=== PATIENT | male | born 1945 | race Caucasian/White ===

== ENCOUNTER 2017-01-28 14:26 | Inpatient (IN) | payer MEDICARE ==
[~2017-01-28] VITALS: Ht 165.1 cm; Wt 83.0 kg
--- NOTE | ~2017-01-28 | OR ---
ADMIT: 01/28/2017 RM/LOC: 529 [facility] MR#: [id number] [address] [facility] [address] [place] [id number] MO[place] [place] [id number] Operative/Delivery Room Report SEX: M AGE: 71 : 1945 SURGERY DATE: 01/28/2017 SURGEON: Vinay Brown MD [employer]ILDR[employer] SERVICE WORKER: MISAEL Santos PREPROCEDURE DIAGNOSIS: Acute appendicitis. POSTPROCEDURE DIAGNOSIS: Perforated cecal mass versus appendix. PROCEDURE: Laparoscopic right hemicolectomy. INDICATIONS: The patient is a 71-year-old, who presented with 3-day history of abdominal pain, radiographic evidence of appendicitis, who presents for laparoscopic appendectomy. FINDINGS: The patient was taken the operating room. General endotracheal anesthesia was induced. The patient's abdomen was prepped and draped in normal sterile fashion. The case was begun by making a transverse, supraumbilical 5 mm skin incision using #11 blade. A retractable 5 mm port was placed within the abdomen. The abdomen was insufflated with CO2 to an intra-abdominal pressure of 15 mmHg. A camera was placed showing no bowel or vascular injury. Suprapubic 5 mm port in the left lower quadrant 12 mm port was placed under direct vision. The case was begun by noting the cecum that was inflamed and stuck to the undersurface of the anterior abdominal wall. When we peeled this down with atraumatic clamps and a suction instrument, immediately there was stool and evidence of what we thought was a perforated appendix. We were able to irrigate and remove the feculent material. We spent the next 0.5 hour or so trying to mobilize the distal ilium and cecum from the retroperitoneum and could not clearly identify an appendix. This perforation appeared right at the base of the appendix or even the cecum. There was a lot of firmness within the cecum itself. I made an attempt to divide the appendiceal mesentery after creating a window between the mesentery with atraumatic clamps and suction instrument and divided with one firing of the appendiceal mesentery with Endo-JUVENTINO 45, 2.5 mm stapler. As I continued this dissection, I tried to make a window behind the cecum just off the distal ileocecal junction, but when palpating this area of large firmness and perforation, there was really no way to get a margin to do a possible partial cecectomy without stapling across the ileocecal valve; therefore, I mobilized the whole right colon along the white line of Toldt using Harmonic scalpel. I did place epigastric 5 mm port. Joo Caldwell was brought in the room for assistance. I then identified the omentum and obtained access to the lesser sac near the mid transverse colon using Harmonic scalpel, continued dissection dividing the whole hepatic flexure, retroperitoneal attachments, lifted up the cecum cephalad using Harmonic scalpel, divided the base of the ileocolic vascular takeoff and using an Endo-JUVENTINO 45, 2.5 mm staple divided this takeoff. I was able to then clearly identify the duodenal, able to tease this posteriorly. I then had the whole ileocecal region fully mobilized and made a midline incision with a #10 blade connecting our two 5 mm port sites, placed a ADMIT: 01/28/2017 RM/LOC: 529 [facility] MR#: [id number] [address] [id number] MARIFER MOORE [address] [place] [address] Operative/Delivery Room Report SEX: M AGE: 71 : 1945 wound protector within the abdomen, brought the specimen out through our midline incision. We were able to palpate the cecum at this point, and still very concerned that there is possible cecal mass. Again, completely unable to identify what could be appendix and again reaffirmed the fact that there was really no way to just do a partial cecectomy to have any type of adequate cecal tissue for staple line without completely dividing the ileocecal junction. Therefore, we divided the remainder of the colon mesentery and small bowel mesentery between clamps and 0 Vicryl ties made enterotomies in the small bowel and the colon using Metzenbaum scissors created a [id number] ileocolic stapled anastomosis with a 75 JUVENTINO stapler, examined the mucosal part of the staple line showing no bleeding and then closed the common enterotomy opening with 2 firings of a 75 JUVENTINO stapler. We then changed gloves and then I reinforced the apex of the staple line using interrupted 4 interrupted 3-0 silk seromuscular sutures and then reinforced the common enterotomy staple line with a running 3-0 silk seromuscular suture imbricating the staple line. There was a palpable and visible blood supply to this anastomosis. We placed this bowel back into the intra-abdominal space. We closed the fascia with running single stranded #1 PDS suture, re-insufflated the intra-abdominal space showing no complicating features. We saw the anastomosis resting comfortably in the right upper quadrant. I did irrigate the right upper quadrant, irrigated and suctioned out. I did not see any complicating features. I examined the midline closure, which appeared intact and then closed the left lower quadrant 12 mm fascial port site with interrupted figure- of-eight 0 Polysorb suture passer. The air was desufflated. The port sites removed. The skin sites were closed with interrupted skin jose r. The wound was cleaned, dried, and dressed. The patient tolerated the procedure without difficulty, was wheeled to recovery room in good condition. Vinay Brown MD/ joanna JOB #: [id number] CC: Vinay Brown, Attending Physician Vinay Brown, Family Physician
--- NOTE | 2017-01-29 13:52 | HP ---
ADMIT: 01/28/2017 RM/LOC: 529 [facility] MR#: [id number] [facility]#: [id number] [address] [facility] [address] [place] [phone] DANNY MOORE [address] [place] [address] History and Physical SEX: M AGE: 71 : 1945 DATE OF SERVICE: 01/28/2017 CHIEF COMPLAINT: Abdominal pain. HISTORY OF PRESENT ILLNESS: Danny is a very pleasant 71-year-old male, who developed sudden onset of right lower quadrant abdominal pain approximately 2 to 3 days ago. He was outside doing yard work, where at first he believed he strained something but his pain did not improve. Because of his symptoms, he decided to seek medical attention at the [facility] which they worked him up and showed that he had acute appendicitis. He is now residing in our Emergency Department. The patient's abdominal pain in his right lower quadrant is sharp in nature. He denies any nausea, vomiting, diarrhea, constipation, dark or bloody stools, fever, chills, or night sweats. He did state that he had a prior episode of this before as a child but they only treated with some oral medications and the patient was discharged from the hospital at that time. PAST MEDICAL HISTORY: Significant for osteoporosis, hyperlipidemia, and hypertension. PAST SURGICAL HISTORY: Open bilateral inguinal hernia repairs and surgery for a right broken arm. ALLERGIES: NO KNOWN DRUG ALLERGIES. MEDICATIONS: 1. Lipitor. 2. Aspirin. 3. Fish oil. 4. Calcitriol. 5. Fosamax. FAMILY HISTORY: Noncontributory. SOCIAL HISTORY: The patient has approximately three beers a week and is a former smoker, but quit back in the . He denies any illicit drug use. REVIEW OF SYSTEMS: CONSTITUTIONAL: The patient denies any fever, chills, or night sweats. The rest of comprehensive 10-point review of systems was performed and all other systems are negative. PHYSICAL EXAMINATION: GENERAL: The patient is in no acute distress. He is alert and oriented. HEENT: Head is normocephalic and atraumatic. EOMS are intact. Conjunctivae free of icterus, erythema, or pallor. Pinnae, free of deformities. Nose, midline. No tracheal deviation. NECK: Supple. SKIN: Negative for jaundice, clubbing, edema, pallor, or cyanosis. LUNGS: Clear to auscultation bilaterally. Normal respiratory effort. ADMIT: 01/28/2017 RM/LOC: 529 [facility] MR#: [id number] [address] [address] DANNY MOORE [address] [place] [address] History and Physical SEX: M AGE: 71 : 1945 HEART: Distal pulses intact. Regular rate and rhythm. ABDOMEN: Soft and nondistended. Tender in right lower quadrant. Exquisite tenderness. Negative for rebound tenderness. Negative for Rovsing sign. Negative for obturator sign. Negative psoas sign. NEURO: Grossly intact. LABORATORY DATA: The following was obtained from an outside lab. White blood cell count elevated at 11.6. DIAGNOSTIC IMAGING: CT of abdomen revealed acute appendicitis. Cannot exclude mass in cecum, also shows granulomatous disease suspect bilateral parapelvic renal cysts and degenerative disk disease at T8-T9 and L1-L2. ASSESSMENT: Acute appendicitis. PLAN: The plan is to have the patient undergo laparoscopic possible open appendectomy performed by Dr. Brown in a couple hours. I discussed the risks, alternatives, benefits, and complications of surgery with the patient to which he is in agreement of this plan, had all of his questions answered and would like to proceed. I will get him on surgery schedule and will be going to surgery shortly. MISAEL Santos / Vinay Brown MD / joanna JOB #: [id number] CC: Vinay Brown, Attending Physician Vinay Brown, Family Physician
[2017-02-02] MEDS ORDERED: ASPIR 8181 MG PO (22:05)
[2017-02-02] MEDS ORDERED: VITAMIN D-32000 UNI1 PO (22:05)
[2017-02-02] MEDS ORDERED: ALENDRONATE SOD70 MG PO (22:05)
[2017-02-02] MEDS ORDERED: MOTRIN IB200 MG PO (22:06)
[2017-02-02] MEDS ORDERED: THERA1 EACH PO (22:06)
[2017-02-02] MEDS ORDERED: PATANOL 0.1%5 ML OU (22:06)
[2017-02-02] MEDS ORDERED: CLARITIN DPS10 MG PO (22:06)
[2017-02-02] MEDS ORDERED: OMEGA-3 DPS1000 MG PO (22:07)
[2017-02-02] MEDS ORDERED: NORCO 5-325 TA1 EACH PO (22:07)
[2017-02-02] MEDS ORDERED: AUGMENTIN 875-1 EACH PO (22:07)
--- NOTE | 2017-02-16 08:14 | ER ---
ADMIT: 01/28/2017 RM/LOC: 529 [facility] MR#: [id number] [address] [facility] [address] [place] [phone] MARIFER MOORE [address] [place] [address] Emergency Room Report SEX: M AGE: 71 : 1945 DATE: 01/28/2017 ADDENDUM: A 71-year-old white male, coming in with right lower quadrant pain, [facility]. He does have an appendectomy. White count 11.6. [facility] just shortly ago and he will be allowed to stay here. I spoke with Dr. Brown. He will admit. CONDITION ON DISCHARGE: Serious, but stable. Joo Frederick MD/ joanna JOB #: [id number] CC: Vinay Brown MD, Attending Physician Vinay Brown MD, Family Physician
--- NOTE | 2017-03-04 08:51 | DS ---
ADMIT: 01/28/2017 RM/LOC: 9 [facility] MR#: [id number] [facility] [id number] MARIFER MOORE [address] [place] [address] Discharge Summary SEX: M AGE: 71 : 1945 ADMISSION DATE: 01/28/2017 DISCHARGE DATE: 02/01/2017 DISMISSAL DIAGNOSIS: Acute appendicitis. DISMISSAL DIAGNOSES: 1. Acute appendicitis with perforation abscess formation. 2. Cecal mucosal necrosis with abscess formation. 3. Acute and chronic serositis. 4. Osteoporosis. 5. Hyperlipidemia. 6. Hypertension. 7. Previous open bilateral inguinal hernia repairs. 8. Previous surgery for broken arm. PROCEDURES: Laparoscopic right hemicolectomy. HOSPITAL COURSE: The patient came to the ER with signs and symptoms concerning for acute appendicitis. Therefore, he immediately transferred to the short-stay surgery services and underwent surgery. Afterwards, the patient transferred to the floor without any complications. He was an inpatient admit with routine med/surg orders. He was started on clears and was given a morphine [employer] for pain control. Overall, the patient recovered well while in the hospital. He tolerated an advanced diet and had normal return of his bowel function. He was up ambulating and vitals remained stable throughout his hospital course. He was weaned off his morphine [employer] and was tolerating oral pain medications. He also transitioned well to oral antibiotics. Lab work remained normal and the patient was able to discharge to home on 02/01/2017. DISCHARGE INSTRUCTIONS: 1. General diet. 2. Activity as tolerated. 3. Follow up with Dr. Brown, Saturday, 02/11. ADMIT: 01/28/2017 RM/LOC: 9 [facility] MR#: [id number] [address] [place], [place] [id number] OSCAR MARIFER Rosalinda [address] [place] [address] Discharge Summary SEX: M AGE: 71 : 1945 DISCHARGE MEDICATIONS: 1. Aspirin 81 mg in the evening. 2. Alendronate 70 mg weekly on Saturday. 3. Vitamin D3 2000 units daily. 4. Multivitamin daily. 5. Loratadine 10 mg daily p.r.n. 6. Ibuprofen 200 mg daily p.r.n. 7. Olopatadine 0.1% one drop in eyes b.i.d. p.r.n. 8. Fish oil 1200 mg daily p.r.n. 9. Augmentin 875 mg b.i.d. 10.[place] 5/325, one tab q.4h p.r.n. MISAEL Santos / Vinay Brown MD / vdg JOB #: [id number] CC: Vinay Brown MD, Attending Physician Vinay Brown MD, Family Physician
--- NOTE | 2017-03-04 08:51 | HP ---
ADMIT: 01/28/2017 RM/LOC: [facility] MR#: [id number] 2620 [facility] [address] [place] [phone] MARIFRE MOORE [address] [place] [address] Pre-OP History and Physical SEX: M AGE: 71 : 1945 DATE OF SERVICE: 01/28/2017 HISTORY OF PRESENT ILLNESS: The patient is a 71-year-old, who presents with about 72-hour history of abdominal pain that is localized to right lower quadrant. Denies nausea, vomiting, or diarrhea. Denies previous history of that issue. Had workup today over at the OR showing acute appendicitis, was sent for definitive cares. PAST SURGICAL HISTORY: Includes open bilateral inguinal hernia repairs in the past. PAST MEDICAL HISTORY: I think hypercholesterolemia and osteoporosis, maybe osteopenia. MEDICATIONS: I believe he mentioned he takes a cholesterol pill and alendronate, although I do not see the cholesterol pill listed. ALLERGIES: HE HAS NO ALLERGIES. SOCIAL HISTORY: Nondrinker. Nonsmoker. REVIEW OF SYSTEMS: No weight changes. No skin rash or hives. No headaches. No cough or shortness of breath. No extremity complaints. He has had the right lower quadrant abdominal pain. No hematologic, neurologic, or psychiatric issues. PHYSICAL EXAMINATION: VITAL SIGNS: He is afebrile. Vitals stable. HEART: Regular. LUNGS: Clear. ABDOMEN: Soft, nondistended. Tender to palpation in right lower quadrant. EXTREMITIES: No peripheral edema. NEURO: No focal neurologic deficits. ASSESSMENT AND PLAN: The patient is a 71-year-old with signs, symptoms, and radiographic evidence consistent with appendicitis. Plan is for laparoscopic versus open appendectomy. Vinay Brown MD/ joanna JOB #: [id number] CC: Vinay Brown, Attending Physician . Rosalinda [facility] Physician
== END 2017-02-01 18:00 | disposition home or self-care (01) | DRG 331 ==
LOC: ER 14:26 → SSS 16:50 → 5MS 20:39
PROVIDERS: ADMIT Surgery
PROC: 0DTF0ZZ Resection of Right Large Intestine, Open Approach (ICD-10-PCS; principal; 2017-01-28)
PROC: 07TC0ZZ Resection of Pelvis Lymphatic, Open Approach (ICD-10-PCS; principal; 2017-01-28)
DX: K35.2 Acute appendicitis with generalized peritonitis (principal); N28.1 Cyst of kidney, acquired; I10 Essential (primary) hypertension; E78.00 Pure hypercholesterolemia, unspecified; M81.0 Age-related osteoporosis without current pathological fracture; M51.35 Other intervertebral disc degeneration, thoracolumbar region; Z79.82 Long term (current) use of aspirin; Z87.891 Personal history of nicotine dependence; Z53.31 Laparoscopic surgical procedure converted to open procedure